=== PATIENT | female | born 1980 | race Caucasian/White ===

== ENCOUNTER 2022-04-23 07:35 | Outpatient (CLI) | payer MEDICAID, SELFPAY | END 2022-04-23 07:36 | disposition home or self-care (01) | LOC: INJ CL 07:39 | PROVIDERS: Visit Provider Family Medicine | DX: M54.16 Radiculopathy, lumbar region (principal); M51.36 Other intervertebral disc degeneration, lumbar region | CPT/HCPCS: 64483; J1100; Q9966 ==

== ENCOUNTER 2022-06-03 08:55 | Emergency (ER) | payer MEDICAID, SELFPAY ==
[2022-06-03] VITALS (12 sets, daily range): BP systolic 148–212; BP diastolic 89–131; PULSE 53–70; RESP 16; TEMP 35.8; O2SAT 91–100; BMI 28.9
--- NOTE | 2022-06-03 09:20 | CRLHL7_ITS ---
For Patients: As a result of the Century Cures Act, medical imaging exams and procedure reports are released immediately into your electronic medical record. You may view this report before your referring provider. If you have questions, please contact your health care provider. INDICATION: Fall TECHNIQUE: CT head without contrast. COMPARISON: None FINDINGS: CSF spaces: Within normal limits for age. Brain parenchyma: The staley-white differentiation is normal. No sign of mass, hemorrhage, or midline shift. Skull base and calvarium: The visualized paranasal sinuses and mastoid air cells demonstrate no acute or significant findings. The visualized orbits are grossly unremarkable. No skull fractures. Large right posterior parietal scalp hematoma. IMPRESSION: No evidence of acute intracranial trauma. Large right posterior parietal scalp hematoma. Dictated by Wilbur Damon MD @ 06/03/2022 11:59:21 AM Please note that all CT scans at this facility use dose modulation, iterative reconstruction, and/or weight-based dosing when appropriate to reduce radiation dose to as low as reasonably achievable. Dictated by: Wilbur Damon MD @ 06/03/2022 11:59:25 (Electronically Signed)
--- NOTE | 2022-06-03 09:20 | CT_ITS ---
Patient: AMALIA SALAZAR Facility:?[facility] Patient ID:?[id number] Site Patient ID:?[id number]. Site :?[id number] Study:?CT-Spine Cervical -06/03/2022 9:59:05 AM Ordering Physician:Lien Lopez Final Report: INDICATION: Fall on ice. Hit back of head. COMPARISON: None. TECHNIQUE: Noncontrast CT scan of the cervical spine was performed. Axial images and multiplanar reformations were reviewed. FINDINGS: The retropharyngeal soft tissues are normal. There is loss of normal cervical lordosis with mild flexion of the cervical spine, likely secondary to splinting and/or patient positioning. Moderate degenerative disc disease and mild facet arthrosis is present at C6-C7. The remaining disc spaces and all vertebral body heights are well maintained. The facet joints are intact. Bone density is normal. No fracture or subluxation is identified. There are small anterior cervical chain lymph nodes, nonspecific. The neck soft tissues are otherwise unremarkable. The visualized lung apices are clear. Cor. IMPRESSION: 1. No fracture or subluxation. 2. Degenerative disc disease at C6-C7. Please note that all CT scans at this facility use dose modulation, iterative reconstruction, and/or weight-based dosing when appropriate to reduce radiation dose to as low as reasonably achievable. Dictated by Toni Fowler MD @ 06/03/2022 10:43:10 AM Signed by:?Toni Fowler MD @06/03/2022 10:43:10 AM (Electronic Signature)
--- NOTE | 2022-06-03 09:26 | ED.GENADULT ---
HPI - General Adult General Date Seen: 06/03/22 Chief complaint: Fall/Minor Trauma Stated complaint: Fell, hit head/back Time Seen by Provider: 06/03/22 08:57 Source: patient Mode of arrival: ambulatory Limitations: no limitations History of Present Illness HPI narrative: Patient is a 41-year-old who says she slipped and fell on her way into work. She hit the back of her head. She complains of headache, jaw pain, bilateral elbow pain. She says she blacked out for a couple of seconds. She has some nausea, has not vomited. Teeth fit together, she is able to bite down. Notes some neck pain when specifically asked. No radiating pain. No weakness or numbness. Says she gets elevated blood pressure when she is having pain. Denies prior history of hypertension otherwise. Arrives by private car. Does not take any blood thinners. Related Data Home Medications Medication Instructions Recorded Confirmed docusate sodium 100 mg capsule mg PO 06/03/22 epinephrine 0.3 mg/0.3 mL 06/03/22 injection, auto-injector gabapentin 300 mg capsule mg 06/03/22 rabeprazole 20 mg tablet,delayed mg PO 06/03/22 release Previous Rx's Medication Instructions Recorded norgestimate 0.18 mg/0.215 mg/0.25 1 tab PO QDAY #84 tabs 11/19/21 mg-ethinyl estradiol 25 mcg tablet ([id number]) Allergies Allergy/AdvReac Type Severity Reaction Status Date / Time NSAIDS (Non-Steroidal Allergy Verified 04/23/22 08:07 Anti-Inflamma pantoprazole Allergy Verified 04/23/22 08:07 Review of Systems Status of ROS: Reports: 10 or more systems reviewed and unremarkable except as noted in History and below [facility] Social History Smoking Status: Never smoker Do you use any of these nicotine containing products: None Second hand tobacco smoke exposure: No How often do you have a drink containing alcohol: never How often do you have six or more drinks on one occasion: Never AUDIT-C Alcohol total score: 0 Non-prescribed substance use: denies use service: No Exam Narrative: Exam Narrative: Vital signs as noted above. In general, an alert, somewhat tearful woman. Head: Normocephalic. Large hematoma on the occipital scalp. No laceration or abrasion. Eyes: Pupils are equal reactive. Extraocular movements are full. Conjunctivae are normal. ENT: Mucous membranes are moist. No significant tenderness of the jaw, no deformity, dentition is intact. No intraoral lacerations. No other facial trauma. Neck: Supple without lymphadenopathy. No significant tenderness to palpation. Heart: Regular rate and rhythm. No murmur or rub. Lungs: Clear bilaterally. No increased work of breathing, crackles or wheezes. Abdomen: Soft and nontender. No organomegaly. Extremities: Well perfused. She has some mild tenderness over the olecranon bilaterally, but she has free range of motion of bilateral elbows, no swelling or deformity. Neurologic: Patient is alert and oriented to person and place. Speech is fluent. Face is symmetric. Moves all extremities equally. Affect: Normal. Skin: Warm and dry. Well perfused. Const: Vital Signs, click to edit/add: Vital Signs - 24 hr 06/03/22 09:01 06/03/22 09:05 06/03/22 09:05 Temperature 96.5 F L Pulse Rate 70 60 Pulse Rate [Left P ulse Oximeter] 64 Respiratory Rate 16 16 Blood Pressure 212/131 H 212/131 H Blood Pressure [Le ft Upper Arm] 191/124 H Pulse Oximetry 100 100 100 Oxygen Delivery [facility] Room Air Room Air 06/03/22 09:06 06/03/22 09:15 06/03/22 09:30 Temperature Pulse Rate 70 53 L 53 L Pulse Rate [Left P ulse Oximeter] Respiratory Rate Blood Pressure Blood Pressure [Le ft Upper Arm] Pulse Oximetry 100 99 100 Oxygen Delivery [facility] 06/03/22 09:32 06/03/22 09:49 06/03/22 10:00 Temperature Pulse Rate 57 L 57 L 54 L Pulse Rate [Left P ulse Oximeter] Respiratory Rate Blood Pressure 172/94 H Blood Pressure [Le ft Upper Arm] Pulse Oximetry 99 100 99 Oxygen Delivery [facility] 06/03/22 10:02 06/03/22 10:15 06/03/22 10:30 Temperature Pulse Rate 57 L 56 L 64 Pulse Rate [Left P ulse Oximeter] Respiratory Rate Blood Pressure 148/89 H Blood Pressure [Le ft Upper Arm] Pulse Oximetry 99 100 100 Oxygen Delivery Me thod 06/03/22 10:31 Temperature Pulse Rate 62 Pulse Rate [Left P ulse Oximeter] Respiratory Rate Blood Pressure 163/100 H Blood Pressure [Le ft Upper Arm] Pulse Oximetry 91 Oxygen Delivery Me thod Course Course Hospital Course: I have ordered a head CT given the reported loss of consciousness, large hematoma. I ordered a CT scan of the neck given distracting injury. Offered x-rays of her elbows, but I think overall she has some bruising of the olecranon but unlikely to have fracture given how easily she is moving the joints bilaterally. She is okay deferring that for now, will reassess and a little bit. With regard her jaw, I suspect that is unlikely to be fracture given any direct injury to the jaw. Her blood pressure is elevated, likely secondary to pain and anxiety, will observe that for now. Blood pressure did come down nicely on its own. CT of the head by my review did not show any intracranial pathology. She does have a large scalp hematoma as noted previously. CT of the cervical spine was read by Radiology as negative. They likewise read the CT of the head negative aside from a scalp hematoma. I have reviewed all this with her. I would recommend ice for the jaw, scalp hematoma, may be helpful for the elbow contusions as well. Ibuprofen or Tylenol as needed. That symptoms will likely be somewhat worse in the morning but should gradually improve over the next several days. If she has severe headache, vomiting, confusion, or other worsening, return for re-evaluation. Otherwise discussed natural history of concussion and what to expect. Primary care follow-up if symptoms are persistent beyond the next several weeks. Vital Signs Vital signs: Initial Vital Signs Temperature 96.5 F L 06/03/22 09:01 Temperature Source Temporal Artery Scan 06/03/22 09:01 Pulse Rate 64 06/03/22 09:01 Pulse Rhythm 06/03/22 09:01 Pulse Strength 3+ Normal 06/03/22 09:01 Respiratory Rate 16 06/03/22 09:01 Blood Pressure 191/124 H 06/03/22 09:01 Blood Pressure Mean 146 06/03/22 09:01 Blood Pressure Position Sitting 06/03/22 09:01 Pulse Oximetry 100 06/03/22 09:01 Oxygen Delivery Method 06/03/22 09:01 Vital Signs Temperature 96.5 F L 06/03/22 09:01 Pulse Rate 64 06/03/22 09:01 Respiratory Rate 16 06/03/22 09:01 Blood Pressure 191/124 H 06/03/22 09:01 Pulse Oximetry 100 06/03/22 09:01 Oxygen Delivery Method 06/03/22 09:01 Temperature 96.5 F L 06/03/22 09:01 Pulse Rate 62 06/03/22 10:31 Respiratory Rate 16 06/03/22 09:05 Blood Pressure 163/100 H 06/03/22 10:31 Pulse Oximetry 91 06/03/22 10:31 Oxygen Delivery Method 06/03/22 09:05 Discharge Plan Discharge Clinical Impression: Concussion with loss of consciousness Patient Disposition: Home, Self-Care Condition: Stable Instructions: Concussion (ED) Additional Instructions: Ibuprofen and/or Tylenol as needed for symptoms. Expect to feel more sore tomorrow, then gradually improved. Ice as needed to your head, jaw, elbows. If you have worsening pain, protracted vomiting, or other more severe symptoms, return for re-evaluation. Head CT today shows no injury to the inside of your head, just the hematoma on the outside. CT of your neck is negative. Prescriptions: No Action rabeprazole 20 mg tablet,delayed release (DR/EC) PO Label Comments: TAKE 1 TABLET BY MOUTH EVERY DAY IN THE MORNING docusate sodium 100 mg capsule PO Label Comments: TAKE ONE CAPSULE BY MOUTH TWICE DAILY NEEDED FOR CONSTIPATION gabapentin 300 mg capsule Label Comments: TAKE 1 CAPSULE BY MOUTH AT BEDTIME epinephrine 0.3 mg/0.3 mL auto-injector Label Comments: INJECT 0.3 MG (1 PEN) INTRAMUSCULAR ONE TIME IF NEEDED FOR ALLERGIC REACTION. norgestimate-ethinyl estradiol [[id number]] 0.18/0.215/0.25 mg-25 mcg tablet 1 tab PO QDAY Qty: 84 3RF Follow Up/Referrals: Ramesh Mercedes MD [Staff Physician] - Stand [facility]one [facility]: [facility] Info Inst[facility]
== END 2022-06-03 13:42 | disposition home or self-care (01) ==
PROVIDERS: Emergency Provider Emergency Medicine
DX: S06.0X1A Concussion with loss of consciousness of 30 minutes or less, initial encounter (principal); W01.10XA Fall on same level from slipping, tripping and stumbling with subsequent striking against unspecified object, initial encounter
CPT/HCPCS: 70450; 72125; 99284

== ENCOUNTER 2022-07-01 13:48 | Outpatient (CLI) | payer MEDICAID, SELFPAY | END 2022-07-01 13:49 | disposition home or self-care (01) | PROVIDERS: Visit Provider Obstetrics & Gynecology | DX: Z01.419 Encounter for gynecological examination (general) (routine) without abnormal findings (principal); E55.9 Vitamin D deficiency, unspecified; E66.9 Obesity, unspecified; N92.0 Excessive and frequent menstruation with regular cycle; Z13.6 Encounter for screening for cardiovascular disorders | CPT/HCPCS: 80061; 84443 ==

== ENCOUNTER 2022-07-02 14:42 | Outpatient (CLI) | payer MEDICAID, SELFPAY ==
--- NOTE | 2022-07-02 15:00 | CRLHL7_ITS ---
For Patients: As a result of the Century Cures Act, medical imaging exams and procedure reports are released immediately into your electronic medical record. You may view this report before your referring provider. If you have questions, please contact your health care provider. BILATERAL SCREENING MAMMOGRAM WITH COMPUTER-AIDED DETECTION AND TOMOSYNTHESIS TECHNIQUE: CC and MLO views were obtained. These mammographic images have been obtained using full-field digital technique. These mammographic images were interpreted with the benefit of computer-aided detection. Breast Tomosynthesis was used in this interpretation. COMPARISON FILM: 06/12/21. FINDINGS: There are scattered areas of fibroglandular density IMPRESSION: There is no radiographic evidence for malignancy. ASSESSMENT: BI-RADS Category 1: Negative RECOMMENDATION: Routine screening mammogram in 1 year. A lay language report of this examination will be provided to the patient. Wilbur Wallace M.D. Diagnostic Radiologist [email or web address] Transcribed: 1:58 p.m. DW/Dictated by: Wilbur Wallace MD @ 07/03/2022 12:45:00 PM (Electronically Signed)
== END 2022-07-02 14:43 | disposition home or self-care (01) ==
LOC: MAMMO 14:43
PROVIDERS: Visit Provider Obstetrics & Gynecology
DX: Z12.31 Encounter for screening mammogram for malignant neoplasm of breast (principal)
CPT/HCPCS: 77063; 77067

== ENCOUNTER 2023-11-07 14:14 | Outpatient (CLI) | payer BC, SELFPAY ==
--- NOTE | 2023-11-07 14:40 | CRLHL7_ITS ---
For Patients: As a result of the Century Cures Act, medical imaging exams and procedure reports are released immediately into your electronic medical record. You may view this report before your referring provider. If you have questions, please contact your health care provider. BILATERAL SCREENING MAMMOGRAM WITH COMPUTER-AIDED DETECTION AND TOMOSYNTHESIS TECHNIQUE: CC and MLO views were obtained. These mammographic images have been obtained using full-field digital technique. These mammographic images were interpreted with the benefit of computer-aided detection. Breast Tomosynthesis was used in this interpretation. COMPARISON FILM: 07/02/2022, 06/12/2021. FINDINGS: There are scattered areas of fibroglandular density IMPRESSION: There is no radiographic evidence for malignancy. ASSESSMENT: BI-RADS Category 1: Negative RECOMMENDATION: Routine screening mammogram in 1 year. A lay language report of this examination will be provided to the patient. Wilbur Wallace M.D. Diagnostic Radiologist [email or web address] GLADIS/Dictated by: Wilbur Wallace MD @ 11/07/2023 2:43:00 PM (Electronically Signed)
== END 2023-11-07 14:15 | disposition home or self-care (01) ==
LOC: MAMMO 14:14
PROVIDERS: Visit Provider Obstetrics & Gynecology
DX: Z12.31 Encounter for screening mammogram for malignant neoplasm of breast (principal)
CPT/HCPCS: 77063; 77067

== ENCOUNTER 2024-11-12 14:55 | Outpatient (CLI) | payer BC, SELFPAY ==
--- NOTE | 2024-11-12 15:20 | CRLHL7_ITS ---
For Patients: As a result of the Century Cures Act, medical imaging exams and procedure reports are released immediately into your electronic medical record. You may view this report before your referring provider. If you have questions, please contact your health care provider. INDICATION: BILATERAL SCREENING MAMMOGRAM, ASYMPTOMATIC 44 Y/O FEMALE COMPARISON: 11/07/2023, 07/02/2022, 06/12/2021 TECHNIQUE: Digital mammogram in CC and MLO projections including computer-aided detection (CAD) and tomosynthesis. BREAST COMPOSITION: There are scattered areas of fibroglandular density. FINDINGS: No suspicious findings. ASSESSMENT: BI-RADS 1 Negative RECOMMENDATION: Annual screening mammogram. A lay language report of this examination will be provided to the patient. Dictated by: Wilbur Wallace MD @ 11/15/2024 08:30:52 (Electronically Signed)
== END 2024-11-12 14:56 | disposition home or self-care (01) ==
LOC: MAMMO 14:55
PROVIDERS: Visit Provider Obstetrics & Gynecology
DX: Z12.31 Encounter for screening mammogram for malignant neoplasm of breast (principal)
CPT/HCPCS: 77063; 77067